=== PATIENT | male | born 1975 | race Caucasian/White ===

== ENCOUNTER 2019-02-23 11:02 | Emergency (ER) | payer OTHER, SELFPAY ==
[2019-02-23 11:11] VITALS: BP 127/71; PULSE 53; RESP 16; TEMP 35.4; O2SAT 98
--- NOTE | 2019-02-23 11:19 | ED.GENADUL_ITS ---
Discharge Plan Disposition Patient Disposition: HOME Condition: Stable Discharge Details Chief Complaint: Laceration Clinical Impression: Laceration of hand, left Primary Care Provider: None,None ED Provider: Felice Herrera Home Meds and New Rx's Prescriptions: No Action No Known Home Meds RF: 0 Discharge Instructions Instructions: Laceration (ED) Additional Instructions: if redness spreads down the finger or you have yellow/white discharge return to the emergency department return in 7-10 days to have the wound evaluated for suture removal Medical Decision Making 43 yo male who denies chronic medical problems was using a saw and cut the distal anterior left index finger. Denies falls or other injuries. Has a 1cm laceration on the fat pad that runs horizontally. intact rom in flexion and extension so doubt tendon injury and intact cap refill and sensation. Will cose with sutures and up date his tetanus as he is not sure when the last time he had it was and has no pcp Differential Diagnosis Differential Diagnosis: laceration, abrasion HPI General Mode of arrival: ambulatory . Date/Time Provider Initiated Documentation: 02/23/19 11:03 . Limitations to Documentation: no limitations . Information obtained by: patient . History of Present Illness 43 year old M presents to the emergency department with the chief complaint of left finger laceration, described as moderate, Quality is described as aching, Patient started experiencing this hour(s) (1) and it has been constant. No relieving factors improve symptom(s), No exacerbating factors reported . Patient notes no other symptoms.. Related Data Home Medications Medication Instructions Recorded Confirmed Unknown [No Known Home Meds] 02/23/19 02/23/19 Allergies Allergy/AdvReac Type Severity Reaction Status Date / Time No Known Drug Allergies Allergy Unverified 02/23/19 11:22 General Stated Complaint: Laceration MOIRA: 4 Review of Systems Review of Systems ROS Unobtainable: All systems reviewed & are unremarkable except as noted in HPI and below Constitutional Constitutional: Denies chills, Denies fever(s) and Denies weakness ENT Ears, Nose, Mouth, and Throat: Denies change in voice Cardiovascular Cardiovascular: Denies chest pain and Denies dyspnea Respiratory Respiratory: Denies cough and Denies dyspnea Gastrointestinal Gastrointestinal: Denies abdominal pain, Denies nausea and Denies vomiting Musculoskeletal Musculoskeletal: Denies joint swelling Neurologic Neurologic: Denies weakness Psychiatric Psychiatric: Denies depression [facility] Social History Smoking/Tobacco Use Status: Never Alcohol Intake: former Drug use: Never Substance use type: does not use Do you feel safe at home: Yes Do you feel safe in your relationship?: Yes Exam Const General: no acute distress Orientation: alert HENMT Head: normal to inspection Ears: external ears normal General nose exam: external nose normal Mouth: moist mucous membranes Eyes General: appearance normal, both eyes and all related structures Neck Neck: normal visual inspection Resp Effort & Inspection: normal respiratory effort and able to speak in complete sentences Cardio Rate: regular rate Skin General skin exam: no rashes or lesions noted Neuro General: alert and oriented x3 Extrem General: full ROM and normal capillary refill Psych Mental Status: mental status grossly normal Course Vital Signs Vital signs: Vital Signs Temperature 35.4 C L 02/23/19 11:11 Pulse 53 L 02/23/19 11:11 Respiratory Rate 16 02/23/19 11:11 Blood Pressure 127/71 02/23/19 11:11 Pulse Oximetry 98 02/23/19 11:11 Temperature 35.4 C L 02/23/19 11:11 Temperature Source Tympanic 02/23/19 11:11 Pulse 53 L 02/23/19 11:11 Respiratory Rate 16 02/23/19 11:11 Blood Pressure 127/71 02/23/19 11:11 Blood Pressure Position Sitting 02/23/19 11:11 Pulse Oximetry 98 02/23/19 11:11 Oxygen Delivery Method Room Air 02/23/19 11:11 Oxygen Flow Rate 0 02/23/19 11:11 Pain Level 4 02/23/19 11:11 Procedures Laceration Laceration 1: Site: hand Side (If applicable): left Size (cm): 1 Description: linear Depth: simple, single layer Local Anesthetic: Lidocaine 1% Amount of anesthesia used (mL): 5 Pre-repair: wound explored and irrigated extensively Skin layer closed with: nylon Size (cm): 5-0 Number of sutures: 5 Technique: simple, interrupted
[2019-02-23 11:43] VITALS: BP 127/71; PULSE 53; RESP 16; TEMP 35.4; O2SAT 98
== END 2019-02-23 11:44 | disposition home or self-care (01) ==
LOC: ER 11:47
PROVIDERS: Emergency Provider Emergency Medicine
DX: S61.412A Laceration without foreign body of left hand, initial encounter (principal); W31.2XXA Contact with powered woodworking and forming machines, initial encounter
CPT/HCPCS: 12001; 90471; 99283

== ENCOUNTER 2019-03-04 15:42 | Emergency (ER) | payer SELFPAY ==
[2019-03-04 15:49] VITALS: BP 116/75; PULSE 55; RESP 16; TEMP 36.6; O2SAT 98
--- NOTE | 2019-03-04 16:02 | ED.GENADUL_ITS ---
Discharge Plan Disposition Patient Disposition: HOME Condition: Stable Discharge Details Chief Complaint: SutureRem Clinical Impression: Visit for suture removal Primary Care Provider: None,None ED Provider: Molly Carney Home Meds and New Rx's Prescriptions: No Action No Known Home Meds RF: 0 Discharge Instructions Instructions: Stitches Removal (ED) Additional Instructions: Keep wound clean and dry. Cover wound with bandage if risk of contamination or opening. Otherwise keep wound open to air to allow wound edges to dry and heal. If you notice any redness, swelling or pain, apply topical antibiotic ointment. Return to the emergency department if you develop any worsening or new concerning symptoms such as fever, significant increase in redness, pain or swelling or red streaking. Discharge Data Discharge Physician: Molly Carney Medical Decision Making 43-year-old male presents for suture removal of left thumb. Patient had suture placement 9 days ago after he cut his left thumb with a table saw. Patient had tetanus given at that time. He states the wound is been healing well. 5 Prolene sutures noted in place without signs of infection or bleeding and appears to be healing well. 5 sutures removed by nurse without complication. Patient was advised that his wound is most vulnerable now that sutures are removed and to keep it clean and dry and cover if risk of contamination/re- opening. He is advised to return here with any worsening or new concerning symptoms. Medical Records Medical records reviewed: Yes I reviewed the patient's medical records. HPI General Mode of arrival: ambulatory . Date/Time Provider Initiated Documentation: 03/04/19 15:43 . Limitations to Documentation: no limitations . Information obtained by: patient . HPI Narrative: Patient is a 43-year-old male who presents for suture removal of his left thumb. Patient states 9 days ago he cut his left thumb with a table saw and was seen here and had 5 sutures placed. He states the wound is been healing well and denies any complications of pain or infection. He was given a tetanus on that visit. He states he was not treated with antibiotics. He denies any acute complaints. Related Data Home Medications Medication Instructions Recorded Confirmed Unknown [No Known Home Meds] 02/23/19 03/04/19 Allergies Allergy/AdvReac Type Severity Reaction Status Date / Time No Known Drug Allergies Allergy Unverified 03/04/19 15:51 General Stated Complaint: SutureRem MOIRA: 5 Review of Systems All systems reviewed & are unremarkable except as noted in HPI and below PFSH Social History Smoking/Tobacco Use Status: Never Alcohol Intake: former Drug use: Never Substance use type: does not use Do you feel safe at home: Yes Do you feel safe in your relationship?: Yes Exam Const General: cooperative, healthy appearing and no acute distress HENMT Head: normal to inspection Mouth: oral mucosae normal Eyes General: appearance normal, both eyes and all related structures Neck Neck: normal visual inspection Resp Effort & Inspection: normal respiratory effort and able to speak in complete sentences Cardio Rate: regular rate Skin General skin exam: no rashes or lesions noted Neuro General: alert, awake and oriented x3 Other: Normal range of motion of left thumb with motor and sensory grossly intact. Extrem General: full ROM and normal capillary refill Other: 5 Prolene sutures noted in place on volar aspect of distal left thumb. Wound healing well with crust and granulation tissue. No edema, erythema, ecchy mosis, drainage or bleeding. Psych Appearance: grossly normal Affect: normal affect Course Vital Signs Vital signs: Vital Signs Temperature 97.9 F 03/04/19 15:49 Pulse 55 L 03/04/19 15:49 Respiratory Rate 16 03/04/19 15:49 Blood Pressure 116/75 03/04/19 15:49 Pulse Oximetry 98 03/04/19 15:49 Temperature 97.9 F 03/04/19 15:49 Temperature Source Skin 03/04/19 15:49 Pulse 55 L 03/04/19 15:49 Respiratory Rate 16 03/04/19 15:49 Respiratory Effort Non-Labored 03/04/19 15:49 Blood Pressure 116/75 03/04/19 15:49 Blood Pressure Position Sitting 03/04/19 15:49 Pulse Oximetry 98 03/04/19 15:49 Oxygen Delivery Method Room Air 03/04/19 15:49 Oxygen Flow Rate 0 03/04/19 15:49 Pain Level 0 03/04/19 15:49
== END 2019-03-04 16:09 | disposition home or self-care (01) ==
PROVIDERS: Emergency Provider Physician Assistant
DX: S51.012D Laceration without foreign body of left elbow, subsequent encounter (principal); W45.8XXD Other foreign body or object entering through skin, subsequent encounter; Z48.02 Encounter for removal of sutures